=== PATIENT | male | born 1985 | race Asian ===

== ENCOUNTER → 2021-08-15 | Outpatient (CLI) | payer BC | LOC: CT 07-30 09:00 → US 07-30 09:30 → CT 08-13 09:00 | PROVIDERS: ATTEND Nurse Practitioner Family | DX: R10.9 Unspecified abdominal pain (principal); R22.1 Localized swelling, mass and lump, neck | CPT/HCPCS: Q9963 ==

== ENCOUNTER 2022-12-07 14:40 | Emergency (ER) | payer BC ==
[~2022-12-07] VITALS: Ht 180.3 cm; Wt 108.9 kg
[2022-12-07 16:25] VITALS: BP 135/78; TEMP 97.8
== END 2022-12-07 16:33 | disposition home or self-care (01) ==
LOC: ED 14:40
DX: S22.32XA Fracture of one rib, left side, initial encounter for closed fracture (principal); V86.56XA Driver of dirt bike or motor/cross bike injured in nontraffic accident, initial encounter; Y92.89 Other specified places as the place of occurrence of the external cause
CPT/HCPCS: 93005; 96374; 96375; 99284; J1885; J2175; J2405